=== PATIENT | female | born 1935 | race Caucasian/White ===

== ENCOUNTER 2021-05-08 16:36 | Outpatient (CLI) | payer MEDICARE, SELFPAY ==
[2021-05-08 16:53] LABS: Mucous, Urine 0 SEEN /hpf (<or=2+); Red Blood Cells-Urine 0 SEEN /hpf (0-5); Squamous Epithelial Cells - UA 0 SEEN /hpf (5-10)
[2021-05-08 18:23] LABS: Absolute Lymphocyte Count 0.89 X10^3/uL (0.83-4.51); Absolute Neutrophil Count 4.5 X10^3/uL (2.0-7.7); Basophil# 0.02 X10^3/uL; Basophil% 0.3 % (0-1); Eosinophil# 0.12 X10^3/uL; Hematocrit 42.4 % (37-47); Hemoglobin 13.8 g/dL (12.0-15.0); Lymphocyte # 0.89 X10^3/ul (0.83-4.51); Lymphocyte % 14.5 % (19-41); Mean Corp Hgb Conc 32.5 g/dL (32-36); Mean Corpuscular Hgb 30.3 pg (27.0-32.0); Mean Platelet Vol. 10.4 fl (6.2-12.0); Monocyte# 0.56 X10^3/uL; Monocyte% 9.2 % (0-10); NRBC Flagged by Analyzer 0 % (0-5); Neutrophil % 73.5 % (47-70); Platelet Count 258 K/mm3 (150-450); RBC Distribution Width SD 47.9 fl (35.1-43.9); Red Blood Count 4.56 M/mm3 (4.2-5.4); White Blood Count 6.1 K/mm3 (4.4-11.0)
[2021-05-08 18:29] LABS: Color, Urine Yellow (Yellow); Glucose, Dipstick Normal (Normal); Ketone-Dipstick Negative (Negative); Leukocyte Esterase-Dipstick 100 /ul (Negative); Nitrite-Dipstick Negative (Negative); Occult Blood-Urine 25 /ul (Negative); Protein-Dipstick 30 mg/dl (Negative); Specific Gravity, Urine 1.025 (1.002-1.030); Urine Bilirubin Dipstick Negative (Negative); Urine Clarity Clear (Clear); Urine Urobilinogen 1 mg/dl (Normal)
[2021-05-08 18:53] LABS: Vitamin B12 310 pg/mL (211-911)
[2021-05-08 18:59] LABS: Bacteria 1+ /hpf (None Seen); White Blood Cells 0-5 SEEN /hpf (0-5)
[2021-05-08 19:08] LABS: ALB/GLOB Ratio 0.9 RATIO (0.9-2.4); AST(SGOT) 18 U/L (15-37); Alanine Aminotransfer ALT/SGPT 27 U/L (13-56); Albumin, Serum 3.5 g/dL (3.2-5.0); Alkaline Phosphatase 124 U/L (45-117); Anion Gap 8 (5-15); BUN 17 mg/dL (7-18); BUN/Creat Ratio 20.2 RATIO (10-20); Calcium,Total 8.8 mg/dL (8.5-10.1); Chloride 110 mmol/L (98-107); Cholesterol 133 mg/dL (200); Creatinine, Serum 0.84 mg/dL (0.55-1.02); EST Glomerular Filtration Rate 68 mL/min (>60); Est Glom Filt Rate - Afr Amer 83 mL/min (>60); Ferritin 128 ng/mL (8-252); Globulin 3.9 g/dL (2.2-4.2); Glucose 106 mg/dL (74-106); High Density Lipoprotein 71 mg/dL; Iron 63 ug/dL (50-170); Iron Binding Capacity,Total 272 ug/dL (250-450); Potassium 4.1 mmol/L (3.5-5.1); Protein, Total 7.4 g/dL (6.4-8.2); Sodium Level 143 mmol/L (136-145); Thyroid Stim Hormone (TSH) 2.17 uIU/mL (0.358-3.74); Triglycerides 118 mg/dL; Very Low Density Lipoprotein 24 mg/dL (5-40)
[2021-05-10 16:11] LABS: Hemoglobin A1c 5.7 % (3.8-5.6)
== END 2021-05-08 23:59 | disposition home or self-care (01) ==
LOC: MFPLAB 16:46
PROVIDERS: Visit Provider Family Medicine
DX: F03.90 Unspecified dementia, unspecified severity, without behavioral disturbance, psychotic disturbance, mood disturbance, and anxiety (principal); D50.9 Iron deficiency anemia, unspecified; R73.02 Impaired glucose tolerance (oral); E78.5 Hyperlipidemia, unspecified; M81.0 Age-related osteoporosis without current pathological fracture; I10 Essential (primary) hypertension; E53.8 Deficiency of other specified B group vitamins; E55.9 Vitamin D deficiency, unspecified
CPT/HCPCS: 36415; 80053; 80061; 81001; 82306; 82607; 82728; 82746; 83036; 83540; 83550; 84443; 85025

== ENCOUNTER 2021-07-03 10:30 | Outpatient (CLI) | payer MEDICARE, BC, SELFPAY ==
--- NOTE | 2021-07-03 10:36 | BD_ITS ---
STUDY: DUAL ENERGY X-RAY ABSORPTIOMETRY / DXA REASON FOR EXAM: Female, 85 years old. 733.00OsteoporosisBONE DENSITY REASON FOR EXAM TECHNIQUE: Bone Mineral Density (BMD) measurements of lumbar spine and right hip were obtained. COMPARISON: None. FINDINGS: Lumbar Spine (L1-L4): g/cm2 (0.748) / T-score (-2.7) / Z-score (0.2) Findings are suggestive of osteoporosis with a high fracture risk. Right Femur Total: g/cm2 (0.522) / T-score (-3.4) / Z-score (-1.1) Right Femoral Neck: g/cm2 (0.457) / T-score (-3.5) / Z-score (-1.0) BD/Dexa Bone Density Study IMPRESSION: The patient is considered osteoporotic as outlined below according to World Michael Organization (WHO) criteria with a high fracture risk. Reference Information: The T-score is the number of standard deviations above or below the standard which is normal for young adults at their peak bone mineral density. The World Health Organization (WHO) interprets the T-scores as follows: Above -1 Normal bone density Between -1 and -2.5 Osteopenia Equal to / or below -2.5 Osteoporosis As a practical clinical guideline, osteopenia may be graded as follows: Mild -1 through -1.5 Moderate -1.6 through -2.0 Severe -2.1 through -2.4 The Z-score is the number of standard deviations above or below age-matched controls. A Z-score of less than -1.5 would be considered abnormal. References: 1. NIH Osteoporosis and Related Bone Diseases www osteo.org 2. International Society for Clinical Densitometry www iscd.org 3. National Osteoporosis Foundation www nof.org Electronically Signed: Pastor Dorado MD at 15:39 EST ,
== END 2021-07-03 23:59 | disposition home or self-care (01) ==
LOC: OPBD 10:31
PROVIDERS: PCP Family Medicine; Referring Provider Family Medicine; Visit Provider Family Medicine
DX: M81.0 Age-related osteoporosis without current pathological fracture (principal)
CPT/HCPCS: 77080

== ENCOUNTER 2021-07-06 23:11 | Emergency (ER) | payer MEDICARE, BC, SELFPAY ==
[2021-07-06 23:12] VITALS: BP 141/72; PULSE 82; RESP 16; TEMP 36.1; O2SAT 99; BMI 21.7
--- NOTE | 2021-07-07 01:19 | CT_ITS ---
STUDY: CT BRAIN WITHOUT CONTRAST REASON FOR EXAM: Female, 86 years old. fall RADIATION DOSAGE (If Supplied By Facility): CTDIvol = ( 44.99 ) mGy, DLP = ( 796.11 ) mGycm TECHNIQUE: Transaxial CT imaging of the brain was performed without administration of intravenous contrast material. Individualized dose optimization techniques were used for this CT. COMPARISON: No relevant priors. FINDINGS: Normal soft tissue structures. Normal calvarium. There is mild cerebral atrophy with widening of the extra-axial spaces and ventricular dilatation. There are areas of decreased attenuation within the white matter tracts of the supratentorial brain, consistent with microvascular disease changes. Normal basal ganglia and thalami. Normal brainstem. Normal cerebellum. There is no intracranial hemorrhage. There are no findings of an acute ischemic infarction. Normal visualized paranasal sinuses. CT/Brain/Head without Contrast IMPRESSION: Chronic involutional changes of the brain. Electronically Signed: Fransico Peoples MD at 2:06 EST ,
--- NOTE | 2021-07-07 01:19 | CT_ITS ---
STUDY: CT CERVICAL SPINE WITHOUT CONTRAST REASON FOR EXAM: Female, 86 years old. fall RADIATION DOSAGE (If Supplied By Facility): CTDIvol = ( 11.95 ) mGy, DLP = ( 221.57 ) mGycm TECHNIQUE: High resolution transaxial imaging was performed without contrast material. Sagittal and coronal images were reconstructed. Individualized dose optimization techniques were used for this CT. COMPARISON: None FINDINGS: Normal craniovertebral junction. There are degenerative changes of the anterior atlantoaxial articulation. Normal odontoid process. There is straightening of the normal cervical lordosis. No acute fracture. There is facet fusion involving the left from C2 to C6 and on the right from C3 to C6. There is minimal anterior listhesis of C6 on C7 likely degenerative in nature measuring 2 mm. Diffuse degenerative disc narrowing. Normal visualized soft tissue structures. CT/Spine Cervical without Contras IMPRESSION: Multilevel degenerative changes, as described above. No acute fracture. Electronically Signed: Farnsico Peoples MD at 2:12 EST ,
[2021-07-07] MEDS: Acetaminophen 500 MG Tablet PO (01:23)
--- NOTE | 2021-07-07 01:29 | EX.ED.GENINJ ---
HPI History of Present Illness Chief Complaint: Head Injury Informant: patient Narrative Narrative: Patient is an 86-year-old female with no significant past medical history presenting after head injury. Patient states she was trying to turn the light off in her room when she slipped on her hardwood floors and fell backwards. She struck the back of her head. Denies any loss of consciousness. Chart review shows the patient is on 325 mg of aspirin. Patient denies being on any blood thinners. Continues to have a headache in the back of her head where she hit. Came in to be evaluated further. Denies any vision changes, speech changes, numbness or tingling. Her is at the bedside. Patient states today is her birthday and she had a lobster dinner at [facility] and home. Tetanus Immunization: Unknown [facility] Home Medications aspirin 325 mg PO DAILY 07/07/21 [History Last Taken Unknown] donepezil 10 mg PO QHS 07/07/21 [History Last Taken Unknown] ramipril 5 mg PO DAILY 07/07/21 [History Last Taken Unknown] Allergy/AdvReac Type Severity Reaction Status Date / Time codeine AdvReac Other Verified 07/06/21 23:14 Social History Smoking Status: Never smoker ROS ROS ED Constitutional Constitutional ED: Denies chills or fever(s) Eyes Eyes: Denies blurry vision or change in vision ENT ENT ED: Denies ear pain or sore throat Cardiovascular Cardiovascular: Denies chest pain Respiratory/Chest Respiratory/Chest: Denies dyspnea Gastrointestinal Gastrointestinal: Denies abdominal pain, nausea or vomiting Musculoskeletal Musculoskeletal: Denies arthralgias, myalgias or neck pain Integumentary Reports Abrasions; Denies rash Neurologic Neurologic: Reports headache(s); Denies paresthesias or weakness Hematologic/Lymphatic Hematologic/Lymphatic: Denies easy bleeding or easy bruising EXAM Physical Exam Const Vital Signs: 07/06/21 23:12 07/06/21 23:59 Temperature 97 F L Temperature Source Temporal Pulse Rate 82 Respiratory Rate 16 Respiratory Effort Normal Non-Labored Respiratory Depth Normal Respiratory Pattern Normal Blood Pressure 141/72 H Blood Pressure Mean 95 Pulse Ox 99 Oxygen Delivery Method Room Air Room Air Positive well nourished and well developed General Appearance ED: well developed HEENT Reports TM's clear HEENT Narrative: Small contusion of the posterior scalp with associated abrasion. No active bleeding. No significant cephalhematoma. No palpable skull fracture. trauma and tenderness Nose: Negative for septum abnormal Tympanic Membrane ED: Yes TM's clear Eyes PERRL and EOMs intact bilaterally Neck full ROM General: Negative for tenderness Chest Wall inspection of chest normal Resp normal respiratory effort and clear to auscultation bilaterally Cardio regular rhythm and no murmurs Rate: regular rate GI normal to inspection, nondistended, normoactive bowel sounds Palpation: soft Back/Spine normal to inspection Back/Spine Narrative: No midline tenderness. Extremity normal to inspection and full ROM General Extremety ED: Negative for deformity, edema or tenderness General Extremity: Negative for deformity or edema Neuro oriented x3, no focal motor deficits and no sensory deficits noted Sensorium / Orientation: alert Skin Skin Narrative: Patient has a 1 cm slightly irregular superficial abrasion at the vertex of the posterior scalp. No active bleeding. MDM MDM MDM Narrative Medical decision making narrative: Patient had a mechanical fall earlier tonight and hit her head. No loss of consciousness. Has an abrasion to her scalp but does not require any type of repair. Localized wound care was applied. Tetanus is updated. She is given a dose of Tylenol in the ER for pain. CT of the head and C-spine do not show any acute process. Patient has a normal neurologic exam. She is stable for discharge home. Patient has been counseled on return precautions and instructed take Tylenol as needed for discomfort. They verbalized agreement and understanding with this plan. Radiography Diagnostic Testing: Clinical Impression(s) from Imaging Studies Brain CT 07/07/21 01:19 IMPRESSION: Chronic involutional changes of the brain. Electronically Signed: Fransico Peoples MD at 2:06 EST , Cervical Spine CT 07/07/21 01:19 IMPRESSION: Multilevel degenerative changes, as described above. No acute fracture. Electronically Signed: Fransico Peoples MD at 2:12 EST , Discharge Plan Triage Chief Complaint: Head Injury ED Provider: Zainab Diaz Dx/Rx/DC Orders Clinical Impression: Abrasion of scalp, Closed head injury, Need for Tdap vaccination Instructions: ED Scalp Contusion, ED Head Injury (Adult) Prescriptions: No Action donepezil 10 mg Tablet 10 mg PO QHS RF: 0 ramipril 5 mg Capsule 5 mg PO DAILY RF: 0 aspirin 325 mg Capsule 325 mg PO DAILY RF: 0 Primary Care Provider: Zeyad Rooney Referrals: Zeyad Rooney MD [Primary Care Provider] - Activity Restrictions/Additional Instructions: No broken bones or brain injuries noted today. Keep the wound on your head clean and wash with soap and water. Disposition Disposition: Home, Self Care Discharge Date/Time: 07/07/21 02:41
[2021-07-07] MEDS: Diphth,Pertuss(Acell),Tet Vac 0.5 ML Vial IM (01:58)
== END 2021-07-07 02:41 | disposition home or self-care (01) ==
PROVIDERS: Emergency Provider Emergency Medicine; PCP Family Medicine; Visit Provider Emergency Medicine
DX: S00.01XA Abrasion of scalp, initial encounter (principal); W01.0XXA Fall on same level from slipping, tripping and stumbling without subsequent striking against object, initial encounter; Y93.9 Activity, unspecified; Y92.9 Unspecified place or not applicable; S00.03XA Contusion of scalp, initial encounter; Z23 Encounter for immunization
CPT/HCPCS: 70450; 72125; 90715; 96372; 99284

== ENCOUNTER → 2021-10-30 | Outpatient (CLI) | payer MEDICARE, BC, SELFPAY ==
[2021-10-30 17:56] LABS: Absolute Lymphocyte Count 0.62 X10^3/uL (0.83-4.51); Absolute Neutrophil Count 5.2 X10^3/uL (2.0-7.7); Basophil# 0.03 X10^3/uL; Basophil% 0.5 % (0-1); Eosinophil# 0.04 X10^3/uL; Eosinophils% 0.6 % (0-5); Hematocrit 41.3 % (37-47); Hemoglobin 13.4 g/dL (12.0-15.0); Lymphocyte # 0.62 X10^3/ul (0.83-4.51); Lymphocyte % 9.7 % (19-41); Mean Corp Hgb Conc 32.4 g/dL (32-36); Mean Corpuscular Hgb 30.7 pg (27.0-32.0); Mean Corpuscular Volume 94.7 fL (81-99); Mean Platelet Vol. 10.2 fl (6.2-12.0); Monocyte% 7.8 % (0-10); NRBC Flagged by Analyzer 0 % (0-5); Neutrophil # 5.17 X10^3/uL (2.7-7.7); Neutrophil % 81.1 % (47-70); Platelet Count 245 K/mm3 (150-450); RBC Distribution Width CV 13.9 % (11.6-14.6); RBC Distribution Width SD 48.9 fl (35.1-43.9); Red Blood Count 4.36 M/mm3 (4.2-5.4); White Blood Count 6.4 K/mm3 (4.4-11.0)
[2021-10-30 18:26] LABS: Vitamin B12 264 pg/mL (211-911)
[2021-10-30 18:35] LABS: Hemoglobin A1c 5.6 % (3.8-5.6)
[2021-10-30 18:36] LABS: ALB/GLOB Ratio 0.9 RATIO (0.9-2.4); AST(SGOT) 22 U/L (15-37); Alanine Aminotransfer ALT/SGPT 28 U/L (13-56); Albumin, Serum 3.4 g/dL (3.2-5.0); Alkaline Phosphatase 95 U/L (45-117); Anion Gap 9 (5-15); BUN 22 mg/dL (7-18); BUN/Creat Ratio 18.2 RATIO (10-20); Calcium,Total 8.9 mg/dL (8.5-10.1); Chloride 109 mmol/L (98-107); Creatinine, Serum 1.21 mg/dL (0.55-1.02); EST Glomerular Filtration Rate 45 mL/min (>60); Est Glom Filt Rate - Afr Amer 54 mL/min (>60); Globulin 3.6 g/dL (2.2-4.2); Glucose 138 mg/dL (74-106); Potassium 4.1 mmol/L (3.5-5.1); Sodium Level 141 mmol/L (136-145)
== END | disposition home or self-care (01) ==
LOC: MFPLAB 15:39
PROVIDERS: PCP Family Medicine; Referring Provider Family Medicine; Visit Provider Family Medicine
DX: I10 Essential (primary) hypertension (principal); E55.9 Vitamin D deficiency, unspecified; E53.8 Deficiency of other specified B group vitamins; R73.02 Impaired glucose tolerance (oral)
CPT/HCPCS: 36415; 80053; 82306; 82607; 82746; 83036; 85025

== ENCOUNTER → 2022-02-14 | Outpatient (CLI) | payer MEDICARE, BC, SELFPAY ==
--- NOTE | 2022-02-14 14:37 | VDLE_ITS ---
Reason For Study: Pain RIGHT LEFT GSV is normal. CFV is compressible, spontaneous, phasic, CFV is compressible, spontaneous, phasic, competent, and demonstrates normal competent and demonstrates normal augmentation. augmentation. FV is compressible, spontaneous, phasic, competent and demonstrates normal augmentation. POP V is compressible, spontaneous, phasic, competent and demonstrates normal augmentation. T/P Trunk is compressible. PTV is compressible. RT PerV is compressible. Procedure This is a venous duplex using B-mode, color flow and spectral Doppler. Exam performed in department. A preliminary report was called and/or faxed to [facility]. VL/Venous Duplex US, Unilateral Interpretation Summary There is no evidence of right lower extremity deep vein thrombosis. Right great saphenous vein appears patent and compressible segmentally. Normal flow patterns left common f emoral vein Ordering Physician: Meenu Royal Referring Physician: Zeyad Rooney Performed By: Robyn Peguero RVT
== END | disposition home or self-care (01) ==
LOC: CVS 14:36
PROVIDERS: PCP Family Medicine; Referring Provider Family Medicine; Visit Provider Family Medicine
DX: M79.604 Pain in right leg (principal)
CPT/HCPCS: 93971

== ENCOUNTER 2022-03-30 21:59 | Inpatient (IN) | payer MEDICARE, BC, SELFPAY ==
[2022-03-30 22:00] VITALS: BP 131/90; PULSE 83; RESP 16; TEMP 36.7; O2SAT 98; BMI 22.8
--- NOTE | 2022-03-30 22:27 | RAD_ITS ---
STUDY: X-RAY - PELVIS REASON FOR EXAM: Female, 86 years old. fall TECHNIQUE: One view of the pelvis was obtained. COMPARISON: None. FINDINGS: Surgical hardware in the left femur transfixing nonacute intertrochanteric fracture. No definite acute fracture demonstrated. Stool and bowel gas obscure the sacrum and portions of the iliac wings. Femoral heads are normal contour. No dislocation of the hips. RAD/Pelvis 1 or 2 Views IMPRESSION: ORIF left femur fracture. No definite acute fracture identified on this single view pelvis. Electronically Signed: Nanda Gómez MD at 23:42 EST ,
[2022-03-30 22:32] VITALS: PULSE 84; O2SAT 96
--- NOTE | 2022-03-30 22:33 | RAD_ITS ---
STUDY: X-RAY - LEFT FEMUR REASON FOR STUDY: Female, 86 years old. pain TECHNIQUE: 4 view(s) of the femur. COMPARISON: None. FINDINGS: BONES: Surgical hardware in the left femur transfixing an old intertrochanteric fracture. Surgical hardware appears intact. Alignment is anatomic. No definite acute fracture demonstrated. Bones are osteopenic. Degenerative changes at the knee. JOINTS: No dislocation. SOFT TISSUES: Unremarkable. RAD/Femur Min 2 Views IMPRESSION: ORIF left femur fracture. No definite acute fracture demonstrated. Electronically Signed: Nanda Gómez MD at 23:44 EST ,
--- NOTE | 2022-03-30 22:33 | CT_ITS ---
STUDY: CT HEAD W/O CONTRAST INJECTION REASON FOR EXAM: Female, 86 years old. fall RADIATION DOSAGE (If Supplied By Facility): CTDIvol = ( 44.99 ) mGy, DLP = ( 779.24 ) mGycm TECHNIQUE: Transaxial CT imaging of the brain was performed without administration of intravenous contrast material. Individualized dose optimization techniques were used for this CT. COMPARISON: CT head 07/07/2021 FINDINGS: BRAIN: No acute bleed. No edema. Mild decreased attenuation in the periventricular white matter bilaterally. Dhz-white matter differentiation is maintained. Arterial calcifications. VENTRICLES AND SULCI: Ventricles and sulci are prominent. EXTRA-AXIAL: No hemorrhage, fluid collection, or mass. CALVARIUM / SKULL BASE: Unremarkable. FACE/SINUSES: Unremarkable. Small sclerotic focus in the left frontal sinus likely an osteoma. SOFT TISSUES: Unremarkable. CT/Brain/Head without Contrast IMPRESSION: No acute abnormality. Chronic microvascular ischemic disease and volume loss. Electronically Signed: Nanda Gómez MD at 23:24 [facility] ,
[2022-03-30 22:57] LABS: Absolute Lymphocyte Count 0.26 X10^3/uL (0.83-4.51); Absolute Neutrophil Count 4.1 X10^3/uL (2.0-7.7); Basophil# 0.01 X10^3/uL; Basophil% 0.2 % (0-1); Eosinophil# 0.01 X10^3/uL; Eosinophils% 0.2 % (0-5); Hematocrit 38.5 % (37-47); Lymphocyte # 0.26 X10^3/ul (0.83-4.51); Lymphocyte % 5.3 % (19-41); Mean Corp Hgb Conc 33.8 g/dL (32-36); Mean Corpuscular Hgb 31.3 pg (27.0-32.0); Mean Corpuscular Volume 92.5 fL (81-99); Mean Platelet Vol. 9.9 fl (6.2-12.0); Monocyte# 0.55 X10^3/uL; Monocyte% 11.1 % (0-10); NRBC Flagged by Analyzer 0 % (0-5); Neutrophil # 4.11 X10^3/uL (2.7-7.7); POSITIVE DIFFERENTIAL YES; Platelet Count 195 K/mm3 (150-450); RBC Distribution Width CV 13.9 % (11.6-14.6); RBC Distribution Width SD 47.2 fl (35.1-43.9); Red Blood Count 4.16 M/mm3 (4.2-5.4)
[2022-03-30 23:06] LABS: Anion Gap 6 (5-15); BUN 21 mg/dL (7-18); BUN/Creat Ratio 26.2 RATIO (10-20); Calcium,Total 9.2 mg/dL (8.5-10.1); Chloride 109 mmol/L (98-107); EST Glomerular Filtration Rate 72 mL/min (>60); Est Glom Filt Rate - Afr Amer 87 mL/min (>60); Estimated Creatinine Clearance 40.66 ml/min; Glucose 106 mg/dL (74-106); Sodium Level 141 mmol/L (136-145)
[2022-03-30 23:13] LABS: Differential Indicated SCAN CRITERIA MET
--- NOTE | 2022-03-30 23:15 | RAD_ITS ---
STUDY: X-RAY CHEST REASON FOR EXAM: Female, 86 years old. cough TECHNIQUE: AP portable. 11:25 PM. COMPARISON: None. FINDINGS: LUNGS: No consolidation. No pneumothorax. MEDIASTINUM: Aorta atherosclerotic and tortuous. CARDIAC SILHOUETTE: Not enlarged. BONES AND SOFT TISSUES: Degenerative changes dorsal spine. RAD/Chest 1 View (Portable) IMPRESSION: No evidence of active intrathoracic disease. Electronically Signed: Nanda Gómez MD at 23:45 EST ,
[2022-03-30 23:40] LABS: Differential Comment SCANNED
[2022-03-30 23:42] LABS: Bacteria 0 SEEN /hpf (None Seen); Mucous, Urine 0 SEEN /hpf (<or=2+); Red Blood Cells-Urine 0 SEEN /hpf (0-5); Squamous Epithelial Cells - UA 0 SEEN /hpf (5-10); White Blood Cells 0 SEEN /hpf (0-5)
[2022-03-30 23:47] LABS: Color, Urine Yellow (Yellow); Glucose, Dipstick Normal (Normal); Ketone-Dipstick Negative (Negative); Leukocyte Esterase-Dipstick Negative /ul (Negative); Nitrite-Dipstick Negative (Negative); Occult Blood-Urine 10 /ul (Negative); Protein-Dipstick 30 mg/dl (Negative); Urine Bilirubin Dipstick Negative (Negative); Urine Clarity Clear (Clear); Urine Urobilinogen Normal (Normal)
--- NOTE | 2022-03-31 00:25 | EX.ED.DYSGE1 ---
HPI History of Present Illness Chief Complaint: Fall Narrative Narrative: Patient is an 86-year-old female with history of dementia. Her who is her front office java developer has been admitted to the hospital secondary to COVID and acute kidney injury. Patient was visiting him in his room when she tripped and fell. She states she believes she tripped/lost her balance and she denies striking her head or any blood thinner use. She reports pain in her left thigh but otherwise has no complaints. PFSH PFSH Home Medications aspirin 325 mg capsule 325 mg PO DAILY 07/07/21 [History Last Taken Unknown] donepezil 10 mg tablet (Aricept) 10 mg PO QHS 07/07/21 [History Last Taken Unknown] ramipril 5 mg capsule 5 mg PO DAILY 07/07/21 [History Last Taken Unknown] Allergy/AdvReac Type Severity Reaction Status Date / Time codeine AdvReac Other Verified 03/30/22 22:03 Social History Smoking Status: Never smoker ROS ROS ED ROS Narrative Please note review of systems may be unreliable secondary to patient's dementia Constitutional Constitutional ED: Denies chills or fever(s) Eyes Eyes: Denies change in vision ENT ENT ED: Denies sore throat Cardiovascular Cardiovascular: Denies chest pain Respiratory/Chest Respiratory/Chest: Denies cough or dyspnea Gastrointestinal Gastrointestinal: Denies abdominal pain, diarrhea, nausea or vomiting Genitourinary Genitourinary ED: Denies dysuria Musculoskeletal Musculoskeletal: Reports other Details: Positive left thigh/leg pain ; Denies myalgias Integumentary Denies rash Neurologic Neurologic: Denies headache(s) Hematologic/Lymphatic Hematologic/Lymphatic: Denies easy bleeding or easy bruising EXAM Physical Exam Const Vital Signs: 03/30/22 22:00 03/30/22 22:09 03/30/22 22:32 Temperature 98.0 F Temperature Source Temporal Pulse Rate 83 84 Respiratory Rate 16 Respiratory Effort Normal Non-Labored Respiratory Depth Normal Respiratory Pattern Normal Blood Pressure 131/90 H Blood Pressure Mean 103 Pulse Ox 98 96 Oxygen Delivery Method Room Air Room Air Room Air 03/31/22 00:27 03/31/22 00:33 Temperature Temperature Source Pulse Rate 72 72 Respiratory Rate Respiratory Effort Respiratory Depth Respiratory Pattern Blood Pressure Blood Pressure Mean Pulse Ox 92 95 Oxygen Delivery Method Room Air Positive well nourished and well developed General Appearance ED: well developed HEENT Reports dry mucous membranes HEENT Narrative: No signs of depressed or basilar skull fracture Mouth ED: Yes dry mucous membranes Mouth: dry mucous membranes Eyes PERRL and EOMs intact bilaterally Neck supple Neck Narrative: No bony deformity or step-off of the cervical spine no midline pain with palpation Chest Wall palpation of chest normal Resp normal respiratory effort and clear to auscultation bilaterally Cardio regular rate and regular rhythm GI normal to inspection, nondistended, normoactive bowel sounds, non-tender, non-distended and no masses Auscultation: normoactive bowel sounds Palpation: soft Back/Spine Back/Spine Narrative: No bony deformity or step-off of the thoracic or lumbar spine no midline pain on palpation Extremity Extremity Narrative: Pelvis is stable there is no shortening or external rotation of either lower extremity. There is pain on palpation of the midportion of the left thigh without bony deformity or joint effusion. Compartments are compressible going against compartment syndrome. Patient is able to move all extremities without difficulty Neuro CN's II-XII intact bilaterally Neuro Narrative: Patient is awake alert and oriented to person only which is baseline mental status with history of dementia otherwise no focal neurologic findings Sensorium / Orientation: alert Psych Psych Narrative: Patient has a flat affect Skin no rashes or lesions noted Skin Narrative: No abrasions or ecchymosis noted MDM MDM MDM Narrative Medical decision making narrative: Patient presented to the ER at baseline mental status. Her only complaint was pain to the left thigh but with her dementia these reports have to be taken with a grain of salt so I elected to check basic laboratory studies with head CT and x-rays. Labs showed COVID-positive otherwise no clinically significant findings. Imaging revealed no acute traumatic changes. At this time the patient is not able to care for herself because of her dementia so the hospitalist was contacted. He was able to contact the nursing ferry terminal supervisor and patient will be allowed to stay in her 's room where nursing staff can check in on her and help take care of her. Her emergency contact was also notified and states they will be by in the hospital in the morning and will take her home and will look after her while her is in the hospital. Therefore as there is no signs of acute trauma and patient has people who are willing to take care of her she does not need admitted and will be discharged at this time Lab Data Attestation: I reviewed the patient's lab results. Labs: Laboratory Results - last 24 hr 03/30/22 03/30/22 03/30/22 22:47 22:47 23:35 WBC 5.0 RBC 4.16 L Hgb 13.0 Hct 38.5 MCV 92.5 MCH 31.3 MCHC 33.8 RDW Std Deviation 47.2 H RDW Coeff of Indira 13.9 Plt Count 195 MPV 9.9 Immature Gran % (Auto) 0.200 Neut % (Auto) 83.0 H Lymph % (Auto) 5.3 L [place] % (Auto) 11.1 H Eos % (Auto) 0.2 Baso % (Auto) 0.2 Absolute Neuts (auto) 4.1 Absolute Lymphs (auto) 0.26 L Nucleated RBC % 0 Differential Comment SCANNED Sodium 141 Potassium 4.0 Chloride 109 H Carbon Dioxide 26.0 Anion Gap 6 BUN 21 H Creatinine 0.80 Estim Creat Clear Calc 40.66 Est GFR (MDRD) Af Amer 87 Est GFR (MDRD) Non-Af 72 BUN/Creatinine Ratio 26.2 H Glucose 106 Calcium 9.2 Urine Color Yellow Urine Clarity Clear Urine pH 6.0 Ur Specific [place] 1.020 Urine Protein 30 H Urine Glucose (UA) Normal Urine Ketones Negative Urine Occult Blood 10 H Urine Nitrite Negative Urine Bilirubin Negative Urine Urobilinogen Normal Ur Leukocyte Esterase Negative Urine RBC 0 SEEN Urine WBC 0 SEEN Ur Squamous Epith Cells 0 SEEN Urine Bacteria 0 SEEN Urine Mucus 0 SEEN Radiography Diagnostic Testing: Clinical Impression(s) from Imaging Studies Pelvis X-Ray 03/30/22 22:27 IMPRESSION: ORIF left femur fracture. No definite acute fracture identified on this single view pelvis. Electronically Signed: Nanda Gómez MD at 23:42 EST , Brain CT 03/30/22 22:33 IMPRESSION: No acute abnormality. Chronic microvascular ischemic disease and volume loss. Electronically Signed: Nanda Gómez MD at 23:24 EST , Femur X-Ray 03/30/22 22:33 IMPRESSION: ORIF left femur fracture. No definite acute fracture demonstrated. Electronically Signed: Nanda Gómez MD at 23:44 EST , Chest X-Ray 03/30/22 23:15 IMPRESSION: No evidence of active intrathoracic disease. Electronically Signed: Nanda Gómez MD at 23:45 EST , X-ray of the pelvis and left femur as interpreted by the emergency medicine physician reveals previous ORIF of a left femur fracture but no acute fracture/periprosthetic fracture or dislocation 1 view chest x-ray as interpreted by the emergency medicine physician reveals no acute infiltrate pneumothorax or pleural effusion. Discharge Plan Triage Chief Complaint: Fall ED Provider: Rodney Baum Dx/Rx/DC Orders Clinical Impression: Accidental fall, Dementia, COVID-19 Instructions: Coronavirus Disease 2019 (COVID-19): Caring for Yourself or Others, Dementia Caregiver Tips, ED Fall Prevention Prescriptions: No Action donepezil [Aricept] 10 mg Tablet 10 mg PO QHS ramipril 5 mg Capsule 5 mg PO DAILY aspirin 325 mg Capsule 325 mg PO DAILY Primary Care Provider: Zeyad Rooney Referrals: Zeyad Rooney MD [Primary Care Provider] - Disposition Disposition: Home, Self Care Discharge Date/Time: 03/31/22 01:34
[2022-03-31 00:27] VITALS: PULSE 72; O2SAT 92
[2022-03-31 00:33] VITALS: PULSE 72; O2SAT 95
--- NOTE | 2022-03-31 01:21 | ED.RN ---
WHEN DISCHARGING PATIENT INTO WHEELCHAIR TO PCU TO BE WITH , PT BECAME AGITATED. PT BEGAN HITTING AND KICKING THIS RN AND RAYSA NYE WELL KAYLEIGH HENDRICKSON. PT STATED GET OFF OF ME AND I AM GOING TO BEAT THE SHIT OUT OF YOU. VERBAL DEESCALATION UTILIZED BY THIS RN SUCH EXPLANATION OF WHY WHEELCHAIR WAS NEEDED AND REORIENTATION TO PLACE, SELF, AND SITUATION. PT RODE IN WHEELCHAIR TO PCU. UPON ARRIVAL TO PCU PT REFUSED TO GET OUT OF THE WHEELCHAIR IN HUSBANDS ROOM IN PCU. RN IN CHARGE OF NOTIFIED WELL AIRPLANE FIRST OFFICER ON PCU. ELECTRICIAN SOUND NOTIFIED OF SITUATION. STAFF DENIED NEEDING ADDITIONAL HELP WITH SITUATION.
--- NOTE | 2022-03-31 11:19 | PCM.HP.STD ---
HPI - General General Date of Admission: 03/31/22 Date of Service: 03/31/22 Chief Complaint: Fall HPI Narrative CARLOS ENRIQUE ESPINAL, is a 86 F who presents who experienced a fall whilst visiting the (patient has been is on admission for COVID). History was limited given patient advanced dementia and apparent confusion. She was reported to have tripped over in the 's room sent to the emergency department. Skeletal survey did not reveal any fracture patient however tested positive for COVID. In view of her frailty decision was made to admit patient for subsequent inpatient evaluation and management. [facility] Home Medications aspirin 325 mg capsule 325 mg PO DAILY 07/07/21 [History Last Taken Unknown] donepezil 10 mg tablet (Aricept) 10 mg PO QHS 07/07/21 [History Last Taken Unknown] ramipril 5 mg capsule 5 mg PO DAILY 07/07/21 [History Last Taken Unknown] Allergy/AdvReac Type Severity Reaction Status Date / Time codeine AdvReac Other Verified 03/30/22 22:03 Family History unable to obtain unable to obtain (In view of patient advanced dementia) Social History Smoking Status: Never smoker ROS ROS Narrative GENERAL: denies fever, chills, HEENT: denies headache, sinus congestion, RESPIRATORY: denies cough, sputum production, CARDIAC: denies chest pain, palpitations, orthopnea, GASTROINTESTINAL: denies abdominal pain, nausea, GENITOURINARY: denies dysuria, urgency, frequency, EXTREMITY: denies swelling MUSCULOSKELETAL: denies current joint pain or tenderness NEUROLOGIC: denies focal numbness, weakness, tingling HEMATOLOGIC: denies easy bruising and/or hemorrhage INTEGUMENT: denies rashes PSYCHIATRIC: denies suicidal or homicidal ideation Vital Signs Vital Signs Vital Signs: 03/30/22 22:00 03/30/22 22:09 03/30/22 22:32 Temperature 98.0 F Temperature Source Temporal Pulse Rate 83 84 Respiratory Rate 16 Respiratory Effort Normal Non-Labored Respiratory Depth Normal Respiratory Pattern Normal Blood Pressure 131/90 H Blood Pressure Mean 103 Pulse Ox 98 96 Oxygen Delivery Method Room Air Room Air Room Air 03/31/22 00:27 03/31/22 00:33 Temperature Temperature Source Pulse Rate 72 72 Respiratory Rate Respiratory Effort Respiratory Depth Respiratory Pattern Blood Pressure Blood Pressure Mean Pulse Ox 92 95 Oxygen Delivery Method Room Air Weight Weight: 56.699 kg Body Mass Index (BMI) 22.8 Results Lab / Micro Data Result Diagrams: 03/30/22 22:47 03/30/22 22:47 Labs: Laboratory Results - last 24 hr 03/30/22 22:47: WBC 5.0, RBC 4.16 L, Hgb 13.0, Hct 38.5, MCV 92.5, MCH 31.3, MCHC 33.8, RDW Std Deviation 47.2 H, RDW Coeff of Indira 13.9, Plt Count 195, MPV 9.9, Immature Gran % (Auto) 0.200, Neut % (Auto) 83.0 H, Lymph % (Auto) 5.3 L, Dougherty % (Auto) 11.1 H, Eos % (Auto) 0.2, Baso % (Auto) 0.2, Absolute Neuts (auto) 4.1, Absolute Lymphs (auto) 0.26 L, Nucleated RBC % 0, Differential Comment SCANNED 03/30/22 22:47: Sodium 141, Potassium 4.0, Chloride 109 H, Carbon Dioxide 26.0, Anion Gap 6, BUN 21 H, Creatinine 0.80, Estim Creat Clear Calc 40.66, Est GFR (MDRD) Af Amer 87, Est GFR (MDRD) Non-Af 72, BUN/Creatinine Ratio 26.2 H, Glucose 106, Calcium 9.2 03/30/22 23:35: Urine Color Yellow, Urine Clarity Clear, Urine pH 6.0, Ur Specific Jerome 1.020, Urine Protein 30 H, Urine Glucose (UA) Normal, Urine Ketones Negative, Urine Occult Blood 10 H, Urine Nitrite Negative, Urine Bilirubin Negative, Urine Urobilinogen Normal, Ur Leukocyte Esterase Negative, Urine RBC 0 SEEN, Urine WBC 0 SEEN, Ur Squamous Epith Cells 0 SEEN, Urine Bacteria 0 SEEN, Urine Mucus 0 SEEN Micro: Microbiology 03/30/22 22:47 Nasal Secretion SARS-CoV-2 & FLU Antigen (Rapid) - Final SARS-CoV-2 (COVID 19) Radiology Impression Pelvis X-Ray 03/30/22 22:27 IMPRESSION: ORIF left femur fracture. No definite acute fracture identified on this single view pelvis. Electronically Signed: Nanda Gómez MD at 23:42 EST , Brain CT 03/30/22 22:33 IMPRESSION: No acute abnormality. Chronic microvascular ischemic disease and volume loss. Electronically Signed: Nanda Gómez MD at 23:24 EST , Femur X-Ray 03/30/22 22:33 IMPRESSION: ORIF left femur fracture. No definite acute fracture demonstrated. Electronically Signed: Nanda Gómez MD at 23:44 EST , Chest X-Ray 03/30/22 23:15 IMPRESSION: No evidence of active intrathoracic disease. Electronically Signed: Nanda Gómez MD at 23:45 EST , Assessment & Plan Assessment/Plan (1) Accidental fall: (2) Dementia: (3) COVID-19: PLAN: Plan 86-year-old lady admitted following a fall tested positive for COVID 1. Acute COVID-19 infection ? Patient currently not requiring any oxygen. Patient has been admitted to regular nursing floor for symptom management 2. Nonsyncopal fall ? Patient has been admitted to regular nursing floor requested for PT OT eval and social and political studies professor to assist with discharge planning 3. Hypertension - Blood pressure controlled, home medications continued with dose adjustment as needed 4. Dementia ? Patient is on donepezil did continue 5. DVT prophylaxis ? SC Lovenox Charges/Coding Visit Charges Inpatient E&M: 26925 Init Hosp L2
[2022-03-31 12:39] VITALS: BP 154/80; PULSE 100; RESP 16; TEMP 37.7; O2SAT 98
[2022-03-31 13:54] VITALS: BP 154/80; PULSE 100; RESP 16; TEMP 37.7; O2SAT 98
[2022-03-31 22:56] VITALS: BP 133/61; PULSE 85; RESP 18; TEMP 37.9; O2SAT 98
[2022-04-01] VITALS (11 sets, daily range): BP systolic 116–143; BP diastolic 52–83; PULSE 62–74; RESP 16–18; TEMP 36.6–37.8; O2SAT 94–98
--- NOTE | 2022-04-01 00:55 | NURSING ---
Patient hitting, kicking, scratching, and attempting to bite this RN and Rukhsana, RIVER TRANSPORTATION WORKER. Patient aggressive, angry, frightened, suspicious. Refusing to take meds. Refusing full skin assessment. When attempting to scratch RN and RIVER TRANSPORTATION WORKER, patient scratched herself and caused a skin tear on the left hand. Patient did not realize she was scratching herself. She thought she was scratching Rukhsana. Patient yelled with crazed eyes, How does that feel?! Patient also refused straight cath for urine specimen.
[2022-04-01 07:13] LABS: Absolute Lymphocyte Count 0.54 X10^3/uL (0.83-4.51); Absolute Neutrophil Count 2.3 X10^3/uL (2.0-7.7); Basophil# 0.01 X10^3/uL; Basophil% 0.3 % (0-1); Eosinophil# 0.01 X10^3/uL; Eosinophils% 0.3 % (0-5); Hematocrit 41.6 % (37-47); Hemoglobin 13.3 g/dL (12.0-15.0); Lymphocyte # 0.54 X10^3/ul (0.83-4.51); Mean Corpuscular Hgb 29.6 pg (27.0-32.0); Mean Corpuscular Volume 92.4 fL (81-99); Mean Platelet Vol. 10.2 fl (6.2-12.0); Monocyte# 0.49 X10^3/uL; Monocyte% 14.5 % (0-10); NRBC Flagged by Analyzer 0 % (0-5); Neutrophil # 2.32 X10^3/uL (2.7-7.7); Neutrophil % 68.6 % (47-70); POSITIVE DIFFERENTIAL YES; Platelet Count 167 K/mm3 (150-450); RBC Distribution Width CV 13.8 % (11.6-14.6); RBC Distribution Width SD 47.4 fl (35.1-43.9); White Blood Count 3.4 K/mm3 (4.4-11.0)
[2022-04-01 07:14] LABS: Differential Indicated SCAN CRITERIA MET
[2022-04-01 07:49] LABS: Anion Gap 9 (5-15); BUN 21 mg/dL (7-18); BUN/Creat Ratio 31.5 RATIO (10-20); Chloride 105 mmol/L (98-107); Creatinine, Serum 0.67 mg/dL (0.55-1.02); EST Glomerular Filtration Rate 89 mL/min (>60); Est Glom Filt Rate - Afr Amer 108 mL/min (>60); Estimated Creatinine Clearance 29.48 ml/min; Glucose 73 mg/dL (74-106); Magnesium 2.2 mg/dL (1.6-2.6); Potassium 3.8 mmol/L (3.5-5.1); Sodium Level 137 mmol/L (136-145)
[2022-04-01 08:01] LABS: Phosphorus 3.2 mg/dL (2.5-4.9)
--- NOTE | 2022-04-01 09:39 | PN.HOSP_ITS ---
Subjective Subjective Breathing well. Having persistent, nonproductive cough. Objective Data Objective Data Vital Signs: Vital Signs Temp Pulse Resp BP Pulse Ox O2 Del Method 37.8 C H 63 18 143/52 H 98 Room Air 04/01/22 05:58 04/01/22 05:58 04/01/22 05:58 04/01/22 05:58 04/01/22 05:58 04/01/22 05:58 Oxygen Delivery Method Room Air Weight: 45.4 kg Body Mass Index (BMI) 22.8 Intake & Output: Intake and Output for Last 24 Hours 03/30/22 03/31/22 04/01/22 23:59 23:59 23:59 Intake Total 0 50 / 50 Balance 50 50 Lab / Micro Data Result Diagrams: 04/01/22 06:40 04/01/22 06:40 Labs: Laboratory Results - last 24 hr 04/01/22 06:40: WBC 3.4 L, RBC 4.50, Hgb 13.3, Hct 41.6, MCV 92.4, MCH 29.6, MCHC 32.0 D, RDW Std Deviation 47.4 H, RDW Coeff of Indira 13.8, Plt Count 167, MPV 10.2, Immature Gran % (Auto) 0.300, Neut % (Auto) 68.6, Lymph % (Auto) 16.0 L, [place] % (Auto) 14.5 H, Eos % (Auto) 0.3, Baso % (Auto) 0.3, Absolute Neuts (auto) 2.3, Absolute Lymphs (auto) 0.54 L, Nucleated RBC % 0, Differential Comment COMMENT, Diff Path Review September04/01/22 06:40: Sodium 137, Potassium 3.8, Chloride 105, Carbon Dioxide 23.0, Anion Gap 9, BUN 21 H, Creatinine 0.67, Estim Creat Clear Calc 29.48, Est GFR (MDRD) Af Amer 108, Est GFR (MDRD) Non-Af 89, BUN/Creatinine Ratio 31.5 H, Glucose 73 L, Calcium 8.0 L, Magnesium 2.2 04/01/22 06:40: Phosphorus 3.2 Micro: Microbiology 04/01/22 03:07 Interface Orders Legionella Antigen - Final 04/01/22 03:07 Urine, Clean Catch Streptococcus pneumoniae Antigen (M - Final 03/30/22 22:47 Nasal Secretion SARS-CoV-2 & FLU Antigen (Rapid) - Final SARS-CoV-2 (COVID 19) Physical Exam Const alert and no apparent distress Resp normal respiratory effort, no retractions, no use of accessory muscles and clear to auscultation bilaterally Cardio regular rate, regular rhythm, S1 normal heart sound and S2 normal heart sound GI normal to inspection, nondistended, normoactive bowel sounds Assessment & Plan Assessment/Plan (1) Accidental fall: PLAN: Nonsyncopal fall ? Patient has been admitted to regular nursing floor requested for PT OT eval and social work program coordinator to assist with dischare PT OT evaluate and treat Likely require detention facility. Patient's is also hospitalized and was informed that he may require detention facility as well. (2) COVID-19: PLAN: Acute COVID-19 infection ? Patient currently not requiring any oxygen. Patient has been admitted to regular nursing floor for symptom management -No tmt needed. Day 0 will be 03/31. Quarantine -, then wear mask around others from -. Patient with allergy to codeine. Therefore cannot use for cough suppression. Supportive management. PLAN: Plan Chronic conditions: * Hypertension- Blood pressure controlled, home medications continued with dose adjustment as needed * Dementia? Patient is on donepezil did continue DVT prophylaxis ? SC Loveaminax Charges/Coding Visit Charges Inpatient E&M: 26395 Subs Hosp L2
[2022-04-01] MEDS: Enoxaparin 40 MG/0.4 ML Syringe SC (09:52)
[2022-04-01] MEDS: Aspirin 325 MG Tablet PO (09:53)
[2022-04-01] MEDS: Ensure Plus High Protein 120 ML LIQUID PO ×4 (09:53→21:50)
[2022-04-01] MEDS: Ramipril 5 MG Capsule PO (12:36)
--- NOTE | 2022-04-01 13:00 | CASEMGMT ---
Discharge Sales Architect This teletypewriter operator sent referral to [facility] via [facility]. Branden CORDOVA Spray Crew
--- NOTE | 2022-04-01 13:38 | CASEMGMT ---
Discharge Irrigationist [facility] accepted patient. Patient can go to [facility] when medically ready. Branden CORDOVA Cyber Transport Systems Specialist
--- NOTE | 2022-04-01 14:26 | CASEMGMT ---
Social Work Per nursing staff pt is confused. Next of kin listed is pt spouse Aung Rivero who is currently admitted on PCU. This SW collaborated with KWAME Chicas PCU who states she spoke with Mr. Rivero regarding his care and care of this pt. Mr. Cochran requesting admission to [facility] skilled level of care for himself and this pt. Referral has been made to [facility] and they are able to accept and pt and spouse will share a room. KWAME met with pt in room and introduced self. KWAME informed pt of conversation with her spouse and plan he has made for their admission to [facility]. Pt expressing happiness with this plan and that she just wants to be with Aung. Physician updated. Plan: [facility], skilled level of care when medically ready CARLEE Zhou
--- NOTE | 2022-04-01 14:38 | TREXTCAR_ITS ---
Diet Diet Order/Speech Therapy: 03/31/22 10:55 Diet: Regular - General Food consistency:: Regular Liquid Consistency:: Regular/Thin Type of Dietary Supplement:: Ensure Plus High Protein Is pt able to select menu?: No Diet Comments: 120 ml ensure plus high protein TID w/ meals Routine Orders/Code Status Code Status: Full Code Wound(s) L hand: Wound Type: Skin Tear Therapies Weight Bearing: Full weight bearing Physical Therapy: Eval and Treat Occupational Therapy: Eval and Treat Problem/Diagnosis (1) Accidental fall: Status: Acute Code(s): W19.XXXA - Unspecified fall, initial encounter Plan: Nonsyncopal fall ? Patient has been admitted to regular nursing floor requested for PT OT eval and social and political studies professor to assist with dischare PT OT evaluate and treat Likely require group home facility. Patient's is also hospitalized and was informed that he may require group home facility as well. (2) COVID-19: Status: Acute Code(s): U07.1 - COVID-19 Plan: Acute COVID-19 infection ? Patient currently not requiring any oxygen. Patient has been admitted to regular nursing floor for symptom management -No tmt needed. Day 0 will be 03/31. Quarantine -, then wear mask around others from -. Patient with allergy to codeine. Therefore cannot use for cough suppression. Supportive management. Plan Chronic conditions: * Hypertension- Blood pressure controlled, home medications continued with dose adjustment as needed * Dementia? Patient is on donepezil did continue DVT prophylaxis ? SC Lovenox Allergies/Procedures Done in Hospital Allergies codeine Adverse Reaction (Verified 03/30/22 22:03) Other Procedures: None Type of Care/Length of Stay Estimated LOS: Convalescent Care Less Than 30 days Type of Care Needed: Skilled Rehab Potential: Fair Prognosis: Fair Additional Orders/Day of Discharge Additional Orders: Quarantine 04/01-, then wear mask around others from 04/06- . Day of Discharge: 04/02/22 Dietary and Speech Recommendations Dietitian Recommendations/Changes: Continue regular diet; will add 120 ml ensure plus high protein TID w/ meals as tolerated. Adjust ONS as needed to optimize PO and prevent wt loss. Obtain UBW/weight hx as able. Discharge Plan Admission Admit Date/Time: 03/31/22 08:25 Primary Reason for Your Visit: debility. COVID 19 Attending Provider: Delmer Staples Primary Care Provider: Zeyad Rooney Consulting Providers: Layo Lott Instructions Patient Instructions: Coronavirus Disease 2019 (COVID-19): Caring for Yourself or Others, Dementia Caregiver Tips, ED Fall Prevention Discharge Orders/Prescriptions Prescriptions: New guaifenesin 100 mg/5 mL liquid 200 mg PO Q4H PRN (Reason: coughing) Qty: 1000 0RF Continued donepezil [Aricept] 10 mg Tablet 10 mg PO QHS ramipril 5 mg Capsule 5 mg PO DAILY aspirin 325 mg Capsule 325 mg PO DAILY Referrals / Follow Up: Zeyad Rooney MD [Primary Care Provider] - Within 2 Weeks Disposition Disposition (needs filled in before D/C Order can be placed): [facility]
[2022-04-01] MEDS: MELATONIN 3 MG TABLET PO (21:50)
[2022-04-01] MEDS: Donepezil HCl 10 MG Tablet PO (21:50)
[2022-04-02 04:20] VITALS: BP 103/52; PULSE 75; RESP 18; TEMP 36.6; O2SAT 96
[2022-04-02 04:23] VITALS: BP 103/52; PULSE 75; RESP 18; TEMP 36.6; O2SAT 96
[2022-04-02] MEDS: Ramipril 5 MG Capsule PO (09:09)
[2022-04-02] MEDS: Ensure Plus High Protein 120 ML LIQUID PO ×2 (09:09→14:02)
[2022-04-02] MEDS: Enoxaparin 40 MG/0.4 ML Syringe SC (09:09)
[2022-04-02] MEDS: Aspirin 325 MG Tablet PO (09:09)
[2022-04-02 09:14] VITALS: BP 101/59; PULSE 73; RESP 18; TEMP 36.4; O2SAT 95
[2022-04-02 11:32] VITALS: O2SAT 98
--- NOTE | 2022-04-02 13:01 | DS.PCM_ITS ---
Providers Date of Admission: 03/31/22 Primary Care Physician: Dr. Zeyad Rooney MD Reason For Visit: FALL, COVID Diagnosis Discharge Diagnosis (1) Accidental fall: Status: Acute Code(s): W19.XXXA - Unspecified fall, initial encounter Plan: Nonsyncopal fall ? Patient has been admitted to regular nursing floor requested for PT OT eval and social media marketer to assist with dischare PT OT evaluate and treat Likely require senior living facility. Patient's is also hospitalized and was informed that he may require senior living facility as well. (2) COVID-19: Status: Acute Code(s): U07.1 - COVID-19 Plan: Acute COVID-19 infection ? Patient currently not requiring any oxygen. Patient has been admitted to regular nursing floor for symptom management -No tmt needed. Day 0 will be 03/31. Quarantine -, then wear mask around others from -. Patient with allergy to codeine. Therefore cannot use for cough suppression. Supportive management. Plan Chronic conditions: * Hypertension- Blood pressure controlled, home medications continued with dose adjustment as needed * Dementia? Patient is on donepezil did continue DVT prophylaxis ? SC Anju Will be discharged to [facility] with her today. Medications at Discharge Home Medications aspirin 325 mg capsule 325 mg PO DAILY 07/07/21 donepezil 10 mg tablet (Aricept) 10 mg PO QHS 07/07/21 ramipril 5 mg capsule 5 mg PO DAILY 07/07/21 guaifenesin 100 mg/5 mL oral liquid 200 mg (10 mL) PO Q4H PRN coughing #1,000 mL 04/02/22 Hospital Course Operations None Procedures None Summary of Care Provided Minutes Spent on Discharge: 28 Weight / BMI Weight Weight: 45.6 kg Body Mass Index (BMI) 22.8 ABG / Lab / Microbiology Data Result Diagrams: 04/01/22 06:40 04/01/22 06:40 Microbiology: Microbiology 04/01/22 03:07 Interface Orders Legionella Antigen - Final 04/01/22 03:07 Urine, Clean Catch Streptococcus pneumoniae Antigen (M - Final 03/30/22 22:47 Nasal Secretion SARS-CoV-2 & FLU Antigen (Rapid) - Final SARS-CoV-2 (COVID 19) Meaningful Use Info Meaningful Use Diagnoses (Choose all that apply): None applicable Discharge Plan Admission Admit Date/Time: 03/31/22 08:25 Primary Reason for Your Visit: debility. COVID 19 Attending Provider: Delmer Staples Primary Care Provider: Zeyad Rooney Consulting Providers: Layo Lott Instructions Patient Instructions: Coronavirus Disease 2019 (COVID-19): Caring for Yourself or Others, Dementia Caregiver Tips, ED Fall Prevention Discharge Orders/Prescriptions Prescriptions: New guaifenesin 100 mg/5 mL liquid 200 mg PO Q4H PRN (Reason: coughing) Qty: 1000 0RF Continued donepezil [Aricept] 10 mg Tablet 10 mg PO QHS ramipril 5 mg Capsule 5 mg PO DAILY aspirin 325 mg Capsule 325 mg PO DAILY Referrals / Follow Up: Zeyad Rooney MD [Primary Care Provider] - Within 2 Weeks Disposition Disposition (needs filled in before D/C Order can be placed): [facility] Charges/Coding Visit Charges Inpatient E&M: 07296 Disch Hosp
--- NOTE | 2022-04-02 13:36 | CASEMGMT ---
Discharge Stock Holder This sports writer called [facility] and set up transport with a citrus picker time of 4:00pm. KWAME Velásquez notified. Patient has been notified as well. Branden CORDOVA Ethylbenzene Oxidizer
--- NOTE | 2022-04-02 13:51 | CASEMGMT ---
Patient's daughter Lynn is going to be coming to [place] from [place] tomorrow. KWAME called Lynn and let her know both patient and her are going to [facility] ([facility]) today. KWAME gave her the name and address of [facility]. Lynn was thankful that KWAME called and gave her this information. Aviva MATTA
[2022-04-02 14:00] VITALS: BP 122/68; PULSE 83; RESP 18; TEMP 36.3; O2SAT 96
--- NOTE | 2022-04-02 14:03 | CASEMGMT ---
Social Work? KWAME completed 7000 convalescent form in [facility]. D/C camp assistant, Tanvi, set up transportation through [facility] for 4pm. KWAME faxed all discharge orders to [facility] via [facility] [employer]. KWAME notified pt nurse of transport time. KWAME made copies of discharge orders and placed on pt chart. Sent original orders in envelope with pt upon discharge.?? Disposition: [facility], skilled, convalescent, level of care? CARLEE Stahl?
--- NOTE | 2022-04-02 14:31 | PHA.DC.MR ---
Pharmacy Service has performed discharge medication reconciliation for this patient. The patient's discharge medication list was reviewed for discrepancies and discrepancies were resolved. Home Medications aspirin 325 mg capsule 325 mg PO DAILY 07/07/21 donepezil 10 mg tablet (Aricept) 10 mg PO QHS 07/07/21 ramipril 5 mg capsule 5 mg PO DAILY 07/07/21 guaifenesin 100 mg/5 mL oral liquid 200 mg (10 mL) PO Q4H PRN coughing #1,000 mL 04/02/22
--- NOTE | 2022-04-02 15:17 | NURSING ---
REPORT CALLED TO [facility] AND TALKED WITH PRECIOUS TABARES
[2022-04-03 09:12] LABS: Pathologist Review Reviewed
== END 2022-04-02 17:00 | DRG 179 ==
LOC: ED 03-31 00:26 → MS3 03-31 10:27
PROVIDERS: Admitting Provider Internal Medicine; Emergency Provider Emergency Medicine; PCP Family Medicine
DX: U07.1 COVID-19 (principal); F03.90 Unspecified dementia, unspecified severity, without behavioral disturbance, psychotic disturbance, mood disturbance, and anxiety; I10 Essential (primary) hypertension; M79.651 Pain in right thigh; W18.09XA Striking against other object with subsequent fall, initial encounter; Y92.239 Unspecified place in hospital as the place of occurrence of the external cause; Z79.82 Long term (current) use of aspirin; Z79.899 Other long term (current) drug therapy
CPT/HCPCS: 70450; 71045; 72170; 73552; 80048; 81001; 83735; 84100; 85025; 87428; 87449; 97110; 97162; 97166; 97535; 99251; 99283; A4216; G0463

== ENCOUNTER → 2022-04-10 | Outpatient (REF) | payer MEDICARE, BC, SELFPAY ==
[2022-04-10 07:13] LABS: Absolute Lymphocyte Count 0.72 X10^3/uL (0.83-4.51); Absolute Neutrophil Count 1.4 X10^3/uL (2.0-7.7); Basophil# 0.01 X10^3/uL; Basophil% 0.4 % (0-1); Eosinophil# 0.05 X10^3/uL; Hematocrit 38.9 % (37-47); Hemoglobin 12.9 g/dL (12.0-15.0); Lymphocyte # 0.72 X10^3/ul (0.83-4.51); Lymphocyte % 28.7 % (19-41); Mean Corp Hgb Conc 33.2 g/dL (32-36); Mean Corpuscular Hgb 30.4 pg (27.0-32.0); Mean Corpuscular Volume 91.7 fL (81-99); Mean Platelet Vol. 10.3 fl (6.2-12.0); Monocyte# 0.29 X10^3/uL; Monocyte% 11.6 % (0-10); NRBC Flagged by Analyzer 0 % (0-5); Neutrophil # 1.41 X10^3/uL (2.7-7.7); Neutrophil % 56.1 % (47-70); Platelet Count 212 K/mm3 (150-450); RBC Distribution Width CV 13.6 % (11.6-14.6); RBC Distribution Width SD 46.4 fl (35.1-43.9); Red Blood Count 4.24 M/mm3 (4.2-5.4); White Blood Count 2.5 K/mm3 (4.4-11.0)
[2022-04-10 07:43] LABS: Anion Gap 4 (5-15); BUN 21 mg/dL (7-18); BUN/Creat Ratio 30.7 RATIO (10-20); CRP < 2.90 mg/L (0.0-3.0); Calcium,Total 8.9 mg/dL (8.5-10.1); Chloride 111 mmol/L (98-107); Creatinine, Serum 0.68 mg/dL (0.55-1.02); EST Glomerular Filtration Rate 87 mL/min (>60); Est Glom Filt Rate - Afr Amer 105 mL/min (>60); Glucose 90 mg/dL (74-106); Potassium 3.6 mmol/L (3.5-5.1); Sodium Level 142 mmol/L (136-145)
== END ==
LOC: OLS.SW 05:00
PROVIDERS: PCP Family Medicine; Visit Provider Internal Medicine
DX: I10 Essential (primary) hypertension (principal); Z79.899 Other long term (current) drug therapy
CPT/HCPCS: 36415; 80048; 85025; 86140

== ENCOUNTER → 2022-04-30 | Outpatient (REF) | payer SELFPAY ==
[2022-04-30 09:41] LABS: CRP < 2.90 mg/L (0.0-3.0)
== END ==
LOC: OLS.SW 05:00
PROVIDERS: PCP Family Medicine; Visit Provider Internal Medicine
DX: U07.1 COVID-19 (principal)
CPT/HCPCS: 36415; 86140